=== PATIENT | female | born 1930 | race Caucasian/White ===

== ENCOUNTER → 2018-04-16 | Outpatient (REF) | payer MEDICARE, MEDICAID ==
[2018-04-16 19:29] LABS: FERRITIN 40 NG/ML (8-252); IRON (FE) 44 UG/DL (50-170); TOTAL IRON BINDING CAPACITY 304 UG/DL (250-450)
[2018-04-16 21:02] LABS: PERCENT SATURATION 14.5 % (13.2-45.0)
== END ==
LOC: M LAB REF 17:00
DX: N18.4 Chronic kidney disease, stage 4 (severe) (principal); N39.0 Urinary tract infection, site not specified; D50.9 Iron deficiency anemia, unspecified
CPT/HCPCS: 83550

== ENCOUNTER 2018-04-30 15:50 | Inpatient (IN) | payer MEDICARE, MEDICAID ==
[2018-04-30 16:26] LABS: BASO % 0.7 % (0.0-1.0); EOS # 0.3 10^3/uL (0.0-0.50); EOS % 5.8 % (0.0-3.0); HEMOGLOBIN 10.9 g/dl (12.0-15.5); IMMATURE GRANULOCYTE % 0.3 % (0-3.0); LYMPH # 1.8 10^3/uL (1.5-4.5); LYMPH % 30.1 % (24.0-44.0); MEAN CORPUSCULAR HEMOGLOBIN 31.7 pg (27.0-33.0); MEAN CORPUSCULAR HGB CONC 32.1 g/dl (32.0-36.5); MEAN CORPUSCULAR VOLUME 98.8 fl (80.0-96.0); MONO # 0.5 10^3/uL (0.0-0.8); MONO % 8.4 % (0.0-5.0); NEUTROPHILS # 3.2 10^3/uL (1.8-7.7); NEUTROPHILS % 54.7 % (36.0-66.0); PLATELET COUNT, AUTOMATED 223 10^3/uL (150-450); RED BLOOD COUNT 3.44 10^6/uL (4.00-5.40); RED CELL DISTRIBUTION WIDTH 17.2 % (11.5-14.5); WHITE BLOOD COUNT 5.8 10^3/uL (4.0-10.0)
[2018-04-30] MEDS ORDERED: LABETALOL HCL 100 MG/20 ML VIAL IV (16:49)
[2018-04-30] MEDS: hydrALAZINE INJ 20 MG/ML VIAL IV ×2 (17:11→17:59)
[2018-04-30 18:01] LABS: ANION GAP 11 MEQ/L (8-16); BLOOD UREA NITROGEN 41 MG/DL (7-18); CALCIUM LEVEL 10.6 MG/DL (8.8-10.2); CARBON DIOXIDE LEVEL 22 MEQ/L (21-32); CHLORIDE LEVEL 105 MEQ/L (98-107); CPK CREATINE PHOSPHOKINASE 57 U/L (26-192); CREATININE FOR GFR 3.12 MG/DL (0.55-1.30); GLUCOSE, FASTING 96 MG/DL (70-100); MB/CK RELATIVE INDEX 5.26 (< OR =4); POTASSIUM SERUM 4.3 MEQ/L (3.5-5.1); SODIUM LEVEL 138 MEQ/L (136-145); TROPONIN I 0.04 NG/ML (< 0.10)
[2018-04-30 18:03] LABS: INR 0.98; PROTHROMBIN TIME 13.1 SECONDS (12.1-14.4)
[2018-04-30 18:04] LABS: PARTIAL THROMBOPLASTIN TIME 28.8 SECONDS (25.4-37.6)
[2018-04-30] MEDS: TROPICAMIDE 1% OPHTH SOLN 2ML OU (18:41)
[2018-04-30] MEDS: PHENYLEPHRINE 2.5% OPHTH SOL 2ML OU (18:41)
[2018-04-30] MEDS ORDERED: clonazePAM 0.5 MG TAB PO (20:00)
[2018-04-30] MEDS ORDERED: ONDANSETRON 4MG/2ML VIAL (J2405) IV (20:15)
[2018-04-30] MEDS ORDERED: PILL CRUSHER/CUTTER 1 EACH XX (20:15)
[2018-04-30 20:28] LABS: C REACTIVE PROTEIN QUANTITATIV < 0.30 MG/DL (0.00-0.30)
[2018-04-30] MEDS: LABETALOL HCL 100 MG/20 ML VIAL IV (20:50)
[2018-04-30] MEDS: FERROUS SULFATE 325MG TAB PO (20:51)
[2018-04-30] MEDS: ATORVASTATIN 20 MG TAB PO (20:51)
[2018-04-30] MEDS: **hydrALAZINE HCL** 25 MG TAB PO (20:51)
[2018-04-30] MEDS: ISOSORBIDE DIN. (ISORDIL) 30 MG TAB PO (20:51)
[2018-04-30] MEDS: SENOKOT S TAB PO (20:52)
[2018-04-30] MEDS: CARVedilol 12.5 MG TAB PO (20:52)
[2018-04-30] MEDS: OLANZapine 2.5MG TABLET PO (20:52)
[2018-04-30 20:55] LABS: KETONE, URINE AUTO RFX NEGATIVE (NEGATIVE); LEUKOCYTE ESTERASE UR AUTO RFX NEGATIVE (NEGATIVE); NITRITE, URINE AUTO RFX NEGATIVE (NEGATIVE); RBC, URINE AUTO RFX 0 /HPF (0-3); SPECIFIC GRAVITY UR AUTO RFX 1.009 (1.002-1.035); SQUAM EPITHELIAL CELL UR AURFX 0 /HPF (0-6); WBC, URINE AUTO RFX 1 /HPF (0-3)
[2018-04-30] MEDS: TIMOLOL MALEATE 0.5% OPHTH SOLN 5 ML OU (21:00)
[2018-04-30 21:12] LABS: ERYTHROCYTE SEDIMENTATION RATE 68 mm/hr (0-42)
[2018-04-30 21:18] LABS: CHLORIDE,RANDOM URINE 108 MEQ/L; CREATININE,RANDOM URINE 33.7 MG/DL; POTASSIUM RANDOM URINE 40.3 MEQ/L; SODIUM,RANDOM URINE 90 MEQ/L; TOTAL PROTEIN,RANDOM URINE 114.2 MG/DL (0.0-12.0)
[2018-04-30 21:41] LABS: OSMOLALITY URINE 356 MOSM/KG (500-800)
[2018-04-30 22:33] LABS: CPK CREATINE PHOSPHOKINASE 60 U/L (26-192); FREE THYROXINE INDEX 4.6 % (1.3-4.8); MB/CK RELATIVE INDEX 4.83 (< OR =4); T UPTAKE 40 % (30-39); THYROXINE (T4) 11.4 UG/DL (4.5-12.0); TROPONIN I 0.06 NG/ML (< 0.10)
[2018-05-01] MEDS: BRIMONIDINE 0.1% OPHTH SOLN 5 ML OU ×3 (01:59→22:02)
[2018-05-01] MEDS: LATANOPROST 0.005% OPHTH SOLN 2.5 ML OU ×2 (01:59→22:01)
[2018-05-01] MEDS: oxyBUTYnin 5 MG TAB PO ×3 (02:00→20:08)
[2018-05-01] MEDS: HEPARIN SOD (PORCINE) 5000 UNITS/ML VIAL SC ×3 (02:01→20:08)
[2018-05-01] MEDS: **hydrALAZINE HCL** 25 MG TAB PO ×3 (06:00→22:01)
[2018-05-01] MEDS: ISOSORBIDE DIN. (ISORDIL) 30 MG TAB PO ×3 (06:00→22:02)
[2018-05-01] MEDS: LEVOTHYROXINE 100MCG TABLET (0.1MG) PO (06:02)
[2018-05-01 06:32] LABS: HEMATOCRIT 30.3 % (36.0-47.0); HEMOGLOBIN 9.8 g/dl (12.0-15.5); MEAN CORPUSCULAR HEMOGLOBIN 32.1 pg (27.0-33.0); MEAN CORPUSCULAR HGB CONC 32.3 g/dl (32.0-36.5); MEAN CORPUSCULAR VOLUME 99.3 fl (80.0-96.0); PLATELET COUNT, AUTOMATED 194 10^3/uL (150-450); RED BLOOD COUNT 3.05 10^6/uL (4.00-5.40); RED CELL DISTRIBUTION WIDTH 17.6 % (11.5-14.5); WHITE BLOOD COUNT 5.4 10^3/uL (4.0-10.0)
[2018-05-01 06:53] LABS: ALBUMIN 3.1 GM/DL (3.2-5.2); ANION GAP 9 MEQ/L (8-16); BLOOD UREA NITROGEN 48 MG/DL (7-18); CALCIUM LEVEL 10.2 MG/DL (8.8-10.2); CARBON DIOXIDE LEVEL 23 MEQ/L (21-32); CHLORIDE LEVEL 104 MEQ/L (98-107); CHOLESTEROL LEVEL 282 MG/DL (<200); CHOLESTEROL RISK RATIO 9.096 (<5); CPK CREATINE PHOSPHOKINASE 79 U/L (26-192); CREATININE FOR GFR 3.49 MG/DL (0.55-1.30); GLOMERULAR FILTRATION RATE 13.2 (>32); GLUCOSE, FASTING 120 MG/DL (70-100); HDL CHOLESTEROL 31 MG/DL (>40); LDL CHOLESTEROL 205 MG/DL (<100); MAGNESIUM LEVEL 2.1 MG/DL (1.8-2.4); NON-HDL-C 251 MG/DL; PHOSPHORUS LEVEL 3.6 MG/DL (2.5-4.9); POTASSIUM SERUM 4.6 MEQ/L (3.5-5.1); SODIUM LEVEL 136 MEQ/L (136-145); TRIGLYCERIDES LEVEL 228 MG/DL (<150); TROPONIN I 0.08 NG/ML (< 0.10)
[2018-05-01] MEDS: ASPIRIN 81 MG ENTERIC TAB PO (08:22)
[2018-05-01] MEDS: PANTOPRAZOLE 40MG TAB (PROTONIX) PO (08:23)
[2018-05-01] MEDS: FERROUS SULFATE 325MG TAB PO ×2 (08:23→20:07)
[2018-05-01] MEDS: SENOKOT S TAB PO ×2 (08:23→20:07)
[2018-05-01] MEDS: CARVedilol 12.5 MG TAB PO ×2 (08:23→20:08)
[2018-05-01] MEDS: CLOPIDOGREL 75 MG TAB PO (08:23)
[2018-05-01] MEDS: TIMOLOL MALEATE 0.5% OPHTH SOLN 5 ML OU ×2 (09:00→20:14)
[2018-05-01 10:31] LABS: ESTIMATED AVERAGE GLUCOSE 114 MG/DL (60-110); HEMOGLOBIN A1c 5.6 %
[2018-05-01 11:41] LABS: HEPATITIS B CORE ANTIBODY IGM NEGATIVE (NEGATIVE); HEPATITIS B SURFACE ANTIBODY NEGATIVE (POSITIVE); HEPATITIS B SURFACE ANTIGEN NEGATIVE (NEGATIVE); HEPATITIS C VIRUS ABY INDEX 0.2 INDEX (<0.8)
[2018-05-01] MEDS: ATORVASTATIN 20 MG TAB PO (20:07)
[2018-05-01] MEDS: OLANZapine 2.5MG TABLET PO (20:14)
[2018-05-02] MEDS: **hydrALAZINE HCL** 25 MG TAB PO ×3 (05:58→22:35)
[2018-05-02] MEDS: LEVOTHYROXINE 100MCG TABLET (0.1MG) PO (05:58)
[2018-05-02] MEDS: ISOSORBIDE DIN. (ISORDIL) 30 MG TAB PO ×3 (05:58→22:35)
[2018-05-02 06:10] LABS: HEMATOCRIT 28.4 % (36.0-47.0); HEMOGLOBIN 9.2 g/dl (12.0-15.5); MEAN CORPUSCULAR HEMOGLOBIN 32.6 pg (27.0-33.0); MEAN CORPUSCULAR HGB CONC 32.4 g/dl (32.0-36.5); MEAN CORPUSCULAR VOLUME 100.7 fl (80.0-96.0); PLATELET COUNT, AUTOMATED 187 10^3/uL (150-450); RED BLOOD COUNT 2.82 10^6/uL (4.00-5.40); RED CELL DISTRIBUTION WIDTH 17.2 % (11.5-14.5); WHITE BLOOD COUNT 5.5 10^3/uL (4.0-10.0)
[2018-05-02 06:39] LABS: ALBUMIN 2.9 GM/DL (3.2-5.2); ANION GAP 12 MEQ/L (8-16); BLOOD UREA NITROGEN 58 MG/DL (7-18); CALCIUM LEVEL 9.6 MG/DL (8.8-10.2); CARBON DIOXIDE LEVEL 20 MEQ/L (21-32); CHLORIDE LEVEL 102 MEQ/L (98-107); CREATININE FOR GFR 4.24 MG/DL (0.55-1.30); GLOMERULAR FILTRATION RATE 10.5 (>32); GLUCOSE, FASTING 100 MG/DL (70-100); MAGNESIUM LEVEL 2.3 MG/DL (1.8-2.4); PHOSPHORUS LEVEL 4.6 MG/DL (2.5-4.9); POTASSIUM SERUM 4.4 MEQ/L (3.5-5.1); SODIUM LEVEL 134 MEQ/L (136-145)
[2018-05-02 08:23] LABS: HEPATITIS B CORE ANTIBODY IGG Negative (Negative)
[2018-05-02] MEDS: BRIMONIDINE 0.1% OPHTH SOLN 5 ML OU ×2 (08:52→20:37)
[2018-05-02] MEDS: TIMOLOL MALEATE 0.5% OPHTH SOLN 5 ML OU ×2 (08:52→20:38)
[2018-05-02] MEDS: SENOKOT S TAB PO ×2 (08:53→20:40)
[2018-05-02] MEDS: oxyBUTYnin 5 MG TAB PO ×2 (08:53→20:40)
[2018-05-02] MEDS: HEPARIN SOD (PORCINE) 5000 UNITS/ML VIAL SC ×2 (08:53→20:41)
[2018-05-02] MEDS: ASPIRIN 81 MG ENTERIC TAB PO (08:53)
[2018-05-02] MEDS: FERROUS SULFATE 325MG TAB PO ×2 (08:53→20:40)
[2018-05-02] MEDS: PANTOPRAZOLE 40MG TAB (PROTONIX) PO (08:53)
[2018-05-02] MEDS: CLOPIDOGREL 75 MG TAB PO (08:53)
[2018-05-02] MEDS: CARVedilol 12.5 MG TAB PO ×2 (08:53→20:40)
[2018-05-02 12:10] LABS: FERRITIN 43 NG/ML (8-252); IRON (FE) 31 UG/DL (50-170); PERCENT SATURATION 11.6 % (13.2-45.0); TOTAL IRON BINDING CAPACITY 268 UG/DL (250-450)
[2018-05-02] MEDS: LATANOPROST 0.005% OPHTH SOLN 2.5 ML OU (20:37)
[2018-05-02] MEDS: ATORVASTATIN 20 MG TAB PO (20:40)
[2018-05-02] MEDS: OLANZapine 2.5MG TABLET PO (20:40)
[2018-05-03] MEDS: **hydrALAZINE HCL** 25 MG TAB PO ×3 (05:23→22:00)
[2018-05-03] MEDS: ISOSORBIDE DIN. (ISORDIL) 30 MG TAB PO ×3 (05:23→22:00)
[2018-05-03] MEDS: LEVOTHYROXINE 100MCG TABLET (0.1MG) PO (05:23)
[2018-05-03 05:54] LABS: HEMATOCRIT 26.6 % (36.0-47.0); HEMOGLOBIN 8.6 g/dl (12.0-15.5); MEAN CORPUSCULAR HEMOGLOBIN 31.9 pg (27.0-33.0); MEAN CORPUSCULAR HGB CONC 32.3 g/dl (32.0-36.5); MEAN CORPUSCULAR VOLUME 98.5 fl (80.0-96.0); PLATELET COUNT, AUTOMATED 167 10^3/uL (150-450); RED CELL DISTRIBUTION WIDTH 16.8 % (11.5-14.5); WHITE BLOOD COUNT 6.1 10^3/uL (4.0-10.0)
[2018-05-03 06:23] LABS: ANION GAP 11 MEQ/L (8-16); BLOOD UREA NITROGEN 66 MG/DL (7-18); CALCIUM LEVEL 8.9 MG/DL (8.8-10.2); CARBON DIOXIDE LEVEL 20 MEQ/L (21-32); CHLORIDE LEVEL 101 MEQ/L (98-107); CREATININE FOR GFR 4.06 MG/DL (0.55-1.30); GLOMERULAR FILTRATION RATE 11.1 (>32); GLUCOSE, FASTING 100 MG/DL (70-100); PHOSPHORUS LEVEL 4.4 MG/DL (2.5-4.9); POTASSIUM SERUM 4.1 MEQ/L (3.5-5.1); SODIUM LEVEL 132 MEQ/L (136-145)
[2018-05-03] MEDS: BRIMONIDINE 0.1% OPHTH SOLN 5 ML OU ×2 (08:00→21:00)
[2018-05-03] MEDS: TIMOLOL MALEATE 0.5% OPHTH SOLN 5 ML OU ×2 (08:00→21:00)
[2018-05-03] MEDS: CLINDAMYCIN 600 MG/50 ML PREMIX BAG As Ordered (08:40)
[2018-05-03] MEDS ORDERED: LIDOCAINE 2% INJ 100 MG/5 ML SDV (FOR ANES.) As Ordered (08:54)
[2018-05-03] MEDS ORDERED: fentaNYL 100 MCG/2 ML INJECTION (J3010) As Ordered (08:54)
[2018-05-03] MEDS ORDERED: PROPOFOL 200 MG/20 ML VIAL As Ordered (08:54)
[2018-05-03] MEDS: CLINDAMYCIN 600 MG in APPROPRIATE DILUENT 1 EA IV (09:00)
[2018-05-03] MEDS: HEPARIN SOD (PORCINE) 5000 UNITS/ML VIAL SC ×2 (09:00→21:00)
[2018-05-03] MEDS: LIDOCAINE 1% SDV INJ 30 ML VIAL As Ordered (09:09)
[2018-05-03] MEDS: HEPARIN SOD (PORCINE) 5000 UNITS/ML VIAL As Ordered (09:09)
[2018-05-03] MEDS: BUPIVACAINE HCL 0.25% 30 ML VIAL As Ordered (09:09)
[2018-05-03] MEDS ORDERED: HEPARIN SOD (PORCINE) 5000 UNITS/ML VIAL As Ordered (09:15)
[2018-05-03] MEDS ORDERED: ONDANSETRON 4MG/2ML VIAL (J2405) IV (10:45)
[2018-05-03] MEDS: LR 1,000 ML IV (10:45)
[2018-05-03] MEDS ORDERED: fentaNYL 100 MCG/2 ML INJECTION (J3010) IV (10:45)
[2018-05-03] MEDS ORDERED: HYDROMORPHONE HCL 0.5 MG/ 0.5 ML SYRINGE (J1170 PER 1) IV (10:45)
[2018-05-03] MEDS: FERROUS SULFATE 325MG TAB PO ×2 (12:46→21:00)
[2018-05-03] MEDS: SENOKOT S TAB PO ×2 (12:47→21:00)
[2018-05-03] MEDS: oxyBUTYnin 5 MG TAB PO ×2 (12:47→21:00)
[2018-05-03] MEDS: CARVedilol 12.5 MG TAB PO ×2 (12:48→21:00)
[2018-05-03] MEDS: PANTOPRAZOLE 40MG TAB (PROTONIX) PO (12:48)
[2018-05-03 13:37] LABS: HIVSOURCE0 NEGATIVE (NEGATIVE)
[2018-05-03 13:46] LABS: CONTROL LINE INT CTR LINE PRESENT; HIV SOURCE PT 1 NEGATIVE (NEGATIVE)
[2018-05-03] MEDS: [UNRECOGNIZED DRUG - OTHER] IM (18:50)
[2018-05-03] MEDS: LATANOPROST 0.005% OPHTH SOLN 2.5 ML OU (21:00)
[2018-05-03] MEDS: OLANZapine 2.5MG TABLET PO (21:00)
[2018-05-03] MEDS: ATORVASTATIN 20 MG TAB PO (21:00)
[2018-05-03 22:08] LABS: HEMATOCRIT 28.5 % (36.0-47.0); HEMOGLOBIN 9.2 g/dl (12.0-15.5); MEAN CORPUSCULAR HEMOGLOBIN 32.3 pg (27.0-33.0); MEAN CORPUSCULAR HGB CONC 32.3 g/dl (32.0-36.5); PLATELET COUNT, AUTOMATED 151 10^3/uL (150-450); RED BLOOD COUNT 2.85 10^6/uL (4.00-5.40); RED CELL DISTRIBUTION WIDTH 17.1 % (11.5-14.5); WHITE BLOOD COUNT 5.3 10^3/uL (4.0-10.0)
[2018-05-04] MEDS: ISOSORBIDE DIN. (ISORDIL) 30 MG TAB PO ×3 (06:23→21:47)
[2018-05-04] MEDS: FERROUS SULFATE 325MG TAB PO (06:23)
[2018-05-04] MEDS: PANTOPRAZOLE 40MG TAB (PROTONIX) PO (06:24)
[2018-05-04] MEDS: LEVOTHYROXINE 100MCG TABLET (0.1MG) PO (06:24)
[2018-05-04] MEDS: CARVedilol 12.5 MG TAB PO ×2 (06:24→20:42)
[2018-05-04] MEDS: **hydrALAZINE HCL** 25 MG TAB PO ×3 (06:25→21:48)
[2018-05-04] MEDS: SENOKOT S TAB PO ×2 (06:25→21:48)
[2018-05-04] MEDS: oxyBUTYnin 5 MG TAB PO ×2 (06:25→20:41)
[2018-05-04] MEDS: BRIMONIDINE 0.1% OPHTH SOLN 5 ML OU ×2 (06:26→21:49)
[2018-05-04] MEDS: TIMOLOL MALEATE 0.5% OPHTH SOLN 5 ML OU ×2 (06:26→21:49)
[2018-05-04] MEDS ORDERED: IRON SUCROSE 100MG 5ML VIAL (J1756 PER 1MG) IV (08:00)
[2018-05-04] MEDS: ASPIRIN 81 MG ENTERIC TAB PO (09:51)
[2018-05-04 09:52] LABS: PTH INTACT 13.2 PG/ML (18.5-88.0)
[2018-05-04] MEDS: CLOPIDOGREL 75 MG TAB PO (09:53)
[2018-05-04] MEDS: HEPARIN SOD (PORCINE) 5000 UNITS/ML VIAL SC ×2 (09:54→20:42)
[2018-05-04 12:06] LABS: HEPATITIS B SURFACE ANTIGEN NEGATIVE (NEGATIVE)
[2018-05-04 12:06] LABS: HEP C VIRUS AB INDEX SOURCE PT 0.2 INDEX (0.0-0.8)
[2018-05-04 14:45] LABS: HEMATOCRIT 28.3 % (36.0-47.0); HEMOGLOBIN 9.2 g/dl (12.0-15.5); MEAN CORPUSCULAR HEMOGLOBIN 33.1 pg (27.0-33.0); MEAN CORPUSCULAR HGB CONC 32.5 g/dl (32.0-36.5); MEAN CORPUSCULAR VOLUME 101.8 fl (80.0-96.0); PLATELET COUNT, AUTOMATED 170 10^3/uL (150-450); RED BLOOD COUNT 2.78 10^6/uL (4.00-5.40); RED CELL DISTRIBUTION WIDTH 17.1 % (11.5-14.5); WHITE BLOOD COUNT 5.4 10^3/uL (4.0-10.0)
[2018-05-04 15:07] LABS: ANION GAP 9 MEQ/L (8-16); BLOOD UREA NITROGEN 62 MG/DL (7-18); CALCIUM LEVEL 8.1 MG/DL (8.8-10.2); CARBON DIOXIDE LEVEL 21 MEQ/L (21-32); CHLORIDE LEVEL 107 MEQ/L (98-107); CREATININE FOR GFR 3.57 MG/DL (0.55-1.30); GLOMERULAR FILTRATION RATE 12.9 (>32); GLUCOSE, FASTING 93 MG/DL (70-100); HEMATOCRIT 26.6 % (36.0-47.0); HEMOGLOBIN 8.5 g/dl (12.0-15.5); MAGNESIUM LEVEL 1.8 MG/DL (1.8-2.4); PLATELET COUNT, AUTOMATED 151 10^3/uL (150-450); POTASSIUM SERUM 4.1 MEQ/L (3.5-5.1); RED BLOOD COUNT 2.66 10^6/uL (4.00-5.40); RED CELL DISTRIBUTION WIDTH 17.2 % (11.5-14.5); SODIUM LEVEL 137 MEQ/L (136-145); WHITE BLOOD COUNT 5.2 10^3/uL (4.0-10.0)
[2018-05-04 15:32] LABS: ANION GAP 12 MEQ/L (8-16); BLOOD UREA NITROGEN 63 MG/DL (7-18); CALCIUM LEVEL 8.6 MG/DL (8.8-10.2); CARBON DIOXIDE LEVEL 20 MEQ/L (21-32); CHLORIDE LEVEL 105 MEQ/L (98-107); CREATININE FOR GFR 3.74 MG/DL (0.55-1.30); GLOMERULAR FILTRATION RATE 12.2 (>32); GLUCOSE, FASTING 111 MG/DL (70-100); MAGNESIUM LEVEL 2.1 MG/DL (1.8-2.4); PHOSPHORUS LEVEL 4.3 MG/DL (2.5-4.9); POTASSIUM SERUM 4.6 MEQ/L (3.5-5.1); SODIUM LEVEL 137 MEQ/L (136-145)
[2018-05-04] MEDS ORDERED: HEPARIN 1,000 UNITS/ML 10ML VIAL (FOR RADIOLOGY& DIALYSIS ONLY) As Ordered (16:05)
[2018-05-04] MEDS ORDERED: LIDOCAINE 1% MDV 20ML VIAL As Ordered (16:05)
[2018-05-04] MEDS ORDERED: LIDOCAINE 2% MDV 20 ML VIAL As Ordered (16:10)
[2018-05-04] MEDS: ATORVASTATIN 20 MG TAB PO (20:41)
[2018-05-04] MEDS: OLANZapine 2.5MG TABLET PO (21:47)
[2018-05-04] MEDS: LATANOPROST 0.005% OPHTH SOLN 2.5 ML OU (21:48)
[2018-05-05] MEDS: ASPIRIN 81 MG ENTERIC TAB PO (05:59)
[2018-05-05] MEDS: LEVOTHYROXINE 100MCG TABLET (0.1MG) PO (05:59)
[2018-05-05] MEDS: ISOSORBIDE DIN. (ISORDIL) 30 MG TAB PO ×3 (05:59→21:23)
[2018-05-05] MEDS: SENOKOT S TAB PO ×2 (06:00→20:22)
[2018-05-05] MEDS: PANTOPRAZOLE 40MG TAB (PROTONIX) PO (06:00)
[2018-05-05] MEDS: oxyBUTYnin 5 MG TAB PO ×2 (06:00→20:22)
[2018-05-05] MEDS: CLOPIDOGREL 75 MG TAB PO (06:00)
[2018-05-05] MEDS: CARVedilol 12.5 MG TAB PO ×2 (06:01→20:23)
[2018-05-05] MEDS: **hydrALAZINE HCL** 25 MG TAB PO ×3 (06:01→21:23)
[2018-05-05] MEDS: TIMOLOL MALEATE 0.5% OPHTH SOLN 5 ML OU ×2 (06:02→20:25)
[2018-05-05] MEDS: BRIMONIDINE 0.1% OPHTH SOLN 5 ML OU ×2 (06:02→20:25)
[2018-05-05 06:06] LABS: HEMATOCRIT 26.5 % (36.0-47.0); HEMOGLOBIN 8.6 g/dl (12.0-15.5); MEAN CORPUSCULAR HEMOGLOBIN 31.9 pg (27.0-33.0); MEAN CORPUSCULAR HGB CONC 32.5 g/dl (32.0-36.5); MEAN CORPUSCULAR VOLUME 98.1 fl (80.0-96.0); PLATELET COUNT, AUTOMATED 151 10^3/uL (150-450); RED CELL DISTRIBUTION WIDTH 17.1 % (11.5-14.5); WHITE BLOOD COUNT 5.3 10^3/uL (4.0-10.0)
[2018-05-05 06:25] LABS: ALBUMIN 2.8 GM/DL (3.2-5.2); ANION GAP 8 MEQ/L (8-16); BLOOD UREA NITROGEN 32 MG/DL (7-18); CALCIUM LEVEL 8.3 MG/DL (8.8-10.2); CARBON DIOXIDE LEVEL 26 MEQ/L (21-32); CHLORIDE LEVEL 106 MEQ/L (98-107); CREATININE FOR GFR 2.48 MG/DL (0.55-1.30); GLOMERULAR FILTRATION RATE 19.6 (>32); GLUCOSE, FASTING 100 MG/DL (70-100); PHOSPHORUS LEVEL 2.7 MG/DL (2.5-4.9); POTASSIUM SERUM 4.1 MEQ/L (3.5-5.1); SODIUM LEVEL 140 MEQ/L (136-145)
[2018-05-05] MEDS: HEPARIN SOD (PORCINE) 5000 UNITS/ML VIAL SC ×2 (10:09→20:24)
[2018-05-05] MEDS: MIRALAX *UNIT DOSE* 17GM PACKET PO (10:12)
[2018-05-05] MEDS: LATANOPROST 0.005% OPHTH SOLN 2.5 ML OU (20:25)
[2018-05-05] MEDS: ATORVASTATIN 20 MG TAB PO (21:23)
[2018-05-05] MEDS: OLANZapine 2.5MG TABLET PO (21:38)
[2018-05-06] MEDS: SENOKOT S TAB PO ×2 (05:49→21:13)
[2018-05-06] MEDS: CARVedilol 12.5 MG TAB PO ×2 (05:50→21:13)
[2018-05-06] MEDS: CLOPIDOGREL 75 MG TAB PO (05:50)
[2018-05-06] MEDS: ISOSORBIDE DIN. (ISORDIL) 30 MG TAB PO ×3 (05:50→21:14)
[2018-05-06] MEDS: LEVOTHYROXINE 100MCG TABLET (0.1MG) PO (05:51)
[2018-05-06] MEDS: **hydrALAZINE HCL** 25 MG TAB PO ×3 (05:51→21:14)
[2018-05-06] MEDS: oxyBUTYnin 5 MG TAB PO ×2 (05:51→21:13)
[2018-05-06] MEDS: PANTOPRAZOLE 40MG TAB (PROTONIX) PO (05:51)
[2018-05-06] MEDS: ASPIRIN 81 MG ENTERIC TAB PO (05:51)
[2018-05-06] MEDS: HEPARIN SOD (PORCINE) 5000 UNITS/ML VIAL SC ×2 (05:52→21:14)
[2018-05-06] MEDS: TIMOLOL MALEATE 0.5% OPHTH SOLN 5 ML OU ×2 (05:53→21:13)
[2018-05-06] MEDS: BRIMONIDINE 0.1% OPHTH SOLN 5 ML OU ×2 (05:53→21:21)
[2018-05-06 06:07] LABS: HEMATOCRIT 23.2 % (36.0-47.0); HEMOGLOBIN 7.9 g/dl (12.0-15.5); MEAN CORPUSCULAR HEMOGLOBIN 34.3 pg (27.0-33.0); MEAN CORPUSCULAR HGB CONC 34.1 g/dl (32.0-36.5); MEAN CORPUSCULAR VOLUME 100.9 fl (80.0-96.0); PLATELET COUNT, AUTOMATED 137 10^3/uL (150-450); RED CELL DISTRIBUTION WIDTH 16.7 % (11.5-14.5); WHITE BLOOD COUNT 6.1 10^3/uL (4.0-10.0)
[2018-05-06 06:25] LABS: ALBUMIN 2.7 GM/DL (3.2-5.2); ANION GAP 8 MEQ/L (8-16); BLOOD UREA NITROGEN 40 MG/DL (7-18); CALCIUM LEVEL 7.9 MG/DL (8.8-10.2); CARBON DIOXIDE LEVEL 23 MEQ/L (21-32); CHLORIDE LEVEL 104 MEQ/L (98-107); GLUCOSE, FASTING 97 MG/DL (70-100); MAGNESIUM LEVEL 1.9 MG/DL (1.8-2.4); PHOSPHORUS LEVEL 2.7 MG/DL (2.5-4.9); POTASSIUM SERUM 4.3 MEQ/L (3.5-5.1); SODIUM LEVEL 135 MEQ/L (136-145)
[2018-05-06] MEDS ORDERED: DARBEPOETIN 100 MCG/0.5 ML *DIALYSIS* SYRINGE (J0882) IV (08:00)
[2018-05-06 13:52] LABS: IMMEDIATE SPIN CROSSMATCH 1 1
[2018-05-06] MEDS: HEPARIN 1,000 UNITS/ML 10ML VIAL (FOR RADIOLOGY& DIALYSIS ONLY) XX (20:52)
[2018-05-06] MEDS: OLANZapine 2.5MG TABLET PO (21:13)
[2018-05-06] MEDS: ATORVASTATIN 20 MG TAB PO (21:13)
[2018-05-06] MEDS: LATANOPROST 0.005% OPHTH SOLN 2.5 ML OU (21:17)
[2018-05-07 06:03] LABS: HEMATOCRIT 29.5 % (36.0-47.0); HEMOGLOBIN 9.6 g/dl (12.0-15.5); MEAN CORPUSCULAR HEMOGLOBIN 31.9 pg (27.0-33.0); MEAN CORPUSCULAR HGB CONC 32.5 g/dl (32.0-36.5); PLATELET COUNT, AUTOMATED 154 10^3/uL (150-450); RED BLOOD COUNT 3.01 10^6/uL (4.00-5.40); RED CELL DISTRIBUTION WIDTH 16.3 % (11.5-14.5); WHITE BLOOD COUNT 6.3 10^3/uL (4.0-10.0)
[2018-05-07 06:25] LABS: ALBUMIN 2.6 GM/DL (3.2-5.2); ANION GAP 10 MEQ/L (8-16); BLOOD UREA NITROGEN 28 MG/DL (7-18); CARBON DIOXIDE LEVEL 24 MEQ/L (21-32); CHLORIDE LEVEL 104 MEQ/L (98-107); CREATININE FOR GFR 2.52 MG/DL (0.55-1.30); GLOMERULAR FILTRATION RATE 19.2 (>32); GLUCOSE, FASTING 103 MG/DL (70-100); MAGNESIUM LEVEL 1.9 MG/DL (1.8-2.4); PHOSPHORUS LEVEL 2.4 MG/DL (2.5-4.9); POTASSIUM SERUM 4.4 MEQ/L (3.5-5.1); SODIUM LEVEL 138 MEQ/L (136-145)
[2018-05-07] MEDS: ISOSORBIDE DIN. (ISORDIL) 30 MG TAB PO ×3 (06:40→21:29)
[2018-05-07] MEDS: **hydrALAZINE HCL** 25 MG TAB PO ×3 (06:40→21:29)
[2018-05-07] MEDS: LEVOTHYROXINE 100MCG TABLET (0.1MG) PO (06:40)
[2018-05-07] MEDS: oxyBUTYnin 5 MG TAB PO ×2 (11:17→21:28)
[2018-05-07] MEDS: BRIMONIDINE 0.1% OPHTH SOLN 5 ML OU ×2 (11:17→21:30)
[2018-05-07] MEDS: TIMOLOL MALEATE 0.5% OPHTH SOLN 5 ML OU ×2 (11:17→21:30)
[2018-05-07] MEDS: CARVedilol 12.5 MG TAB PO ×2 (11:18→21:28)
[2018-05-07] MEDS: SENOKOT S TAB PO ×2 (11:18→21:29)
[2018-05-07] MEDS: PANTOPRAZOLE 40MG TAB (PROTONIX) PO (11:18)
[2018-05-07] MEDS: OLANZapine 2.5MG TABLET PO (21:28)
[2018-05-07] MEDS: LATANOPROST 0.005% OPHTH SOLN 2.5 ML OU (21:29)
[2018-05-07] MEDS: ATORVASTATIN 20 MG TAB PO (21:32)
[2018-05-08] MEDS: LEVOTHYROXINE 100MCG TABLET (0.1MG) PO (06:00)
[2018-05-08] MEDS: SENOKOT S TAB PO ×2 (06:10→21:10)
[2018-05-08] MEDS: PANTOPRAZOLE 40MG TAB (PROTONIX) PO (06:10)
[2018-05-08] MEDS: ISOSORBIDE DIN. (ISORDIL) 30 MG TAB PO ×3 (06:10→21:11)
[2018-05-08] MEDS: **hydrALAZINE HCL** 25 MG TAB PO ×3 (06:10→21:12)
[2018-05-08] MEDS: CARVedilol 12.5 MG TAB PO ×2 (06:11→21:11)
[2018-05-08] MEDS: oxyBUTYnin 5 MG TAB PO ×2 (06:11→21:11)
[2018-05-08] MEDS: BRIMONIDINE 0.1% OPHTH SOLN 5 ML OU ×2 (06:12→21:12)
[2018-05-08] MEDS: LATANOPROST 0.005% OPHTH SOLN 2.5 ML OU (06:12)
[2018-05-08] MEDS: TIMOLOL MALEATE 0.5% OPHTH SOLN 5 ML OU ×2 (07:28→21:12)
[2018-05-08 09:03] LABS: HEMATOCRIT 32.4 % (36.0-47.0); HEMOGLOBIN 10.6 g/dl (12.0-15.5); MEAN CORPUSCULAR HEMOGLOBIN 32.9 pg (27.0-33.0); MEAN CORPUSCULAR HGB CONC 32.7 g/dl (32.0-36.5); MEAN CORPUSCULAR VOLUME 100.6 fl (80.0-96.0); PLATELET COUNT, AUTOMATED 179 10^3/uL (150-450); RED BLOOD COUNT 3.22 10^6/uL (4.00-5.40); RED CELL DISTRIBUTION WIDTH 16.5 % (11.5-14.5); WHITE BLOOD COUNT 7.2 10^3/uL (4.0-10.0)
[2018-05-08 09:24] LABS: BASO % 0.4 % (0.0-1.0); EOS # 0.3 10^3/uL (0.0-0.50); EOS % 4.4 % (0.0-3.0); IMMATURE GRANULOCYTE % 0.4 % (0-3.0); MONO # 0.5 10^3/uL (0.0-0.8); MONO % 7.7 % (0.0-5.0); NEUTROPHILS # 4.9 10^3/uL (1.8-7.7); NEUTROPHILS % 72.1 % (36.0-66.0)
[2018-05-08 09:26] LABS: DIFF SLIDE NUMBER 94
[2018-05-08 09:34] LABS: ALBUMIN 3.1 GM/DL (3.2-5.2); ANION GAP 11 MEQ/L (8-16); BLOOD UREA NITROGEN 41 MG/DL (7-18); CALCIUM LEVEL 8.7 MG/DL (8.8-10.2); CARBON DIOXIDE LEVEL 22 MEQ/L (21-32); CHLORIDE LEVEL 105 MEQ/L (98-107); CREATININE FOR GFR 2.97 MG/DL (0.55-1.30); GLOMERULAR FILTRATION RATE 15.9 (>32); GLUCOSE, FASTING 169 MG/DL (70-100); PHOSPHORUS LEVEL 2.6 MG/DL (2.5-4.9); POTASSIUM SERUM 3.9 MEQ/L (3.5-5.1); SODIUM LEVEL 138 MEQ/L (136-145)
[2018-05-08] MEDS: ASPIRIN 81 MG ENTERIC TAB PO (14:38)
[2018-05-08] MEDS: ATORVASTATIN 20 MG TAB PO (21:10)
[2018-05-08] MEDS: OLANZapine 2.5MG TABLET PO (21:12)
[2018-05-09] MEDS: LEVOTHYROXINE 100MCG TABLET (0.1MG) PO (06:00)
[2018-05-09] MEDS: ISOSORBIDE DIN. (ISORDIL) 30 MG TAB PO ×3 (06:00→21:32)
[2018-05-09 06:48] LABS: HEMATOCRIT 31.8 % (36.0-47.0); HEMOGLOBIN 10.2 g/dl (12.0-15.5); MEAN CORPUSCULAR HEMOGLOBIN 31.6 pg (27.0-33.0); MEAN CORPUSCULAR HGB CONC 32.1 g/dl (32.0-36.5); MEAN CORPUSCULAR VOLUME 98.5 fl (80.0-96.0); PLATELET COUNT, AUTOMATED 174 10^3/uL (150-450); RED BLOOD COUNT 3.23 10^6/uL (4.00-5.40); RED CELL DISTRIBUTION WIDTH 16.3 % (11.5-14.5); WHITE BLOOD COUNT 7.9 10^3/uL (4.0-10.0)
[2018-05-09 07:17] LABS: ANION GAP 6 MEQ/L (8-16); BLOOD UREA NITROGEN 28 MG/DL (7-18); CALCIUM LEVEL 8.9 MG/DL (8.8-10.2); CARBON DIOXIDE LEVEL 28 MEQ/L (21-32); CHLORIDE LEVEL 102 MEQ/L (98-107); CREATININE FOR GFR 2.33 MG/DL (0.55-1.30); GLUCOSE, FASTING 103 MG/DL (70-100); POTASSIUM SERUM 4.2 MEQ/L (3.5-5.1); SODIUM LEVEL 136 MEQ/L (136-145)
[2018-05-09] MEDS: **hydrALAZINE HCL** 25 MG TAB PO ×3 (09:01→21:32)
[2018-05-09] MEDS: CARVedilol 12.5 MG TAB PO ×2 (09:02→21:32)
[2018-05-09] MEDS: SENOKOT S TAB PO ×2 (09:16→21:33)
[2018-05-09] MEDS: ASPIRIN 81 MG ENTERIC TAB PO (09:16)
[2018-05-09] MEDS: BRIMONIDINE 0.1% OPHTH SOLN 5 ML OU ×2 (09:17→21:34)
[2018-05-09] MEDS: oxyBUTYnin 5 MG TAB PO ×2 (09:17→21:33)
[2018-05-09] MEDS: PANTOPRAZOLE 40MG TAB (PROTONIX) PO (09:17)
[2018-05-09] MEDS: TIMOLOL MALEATE 0.5% OPHTH SOLN 5 ML OU ×2 (09:17→21:33)
[2018-05-09] MEDS: BISACODYL 10 MG SUPP PR (17:21)
[2018-05-09] MEDS: OLANZapine 2.5MG TABLET PO (21:32)
[2018-05-09] MEDS: ATORVASTATIN 20 MG TAB PO (21:33)
[2018-05-09] MEDS: LATANOPROST 0.005% OPHTH SOLN 2.5 ML OU (21:33)
[2018-05-10 05:59] LABS: HEMATOCRIT 32.1 % (36.0-47.0); HEMOGLOBIN 10.3 g/dl (12.0-15.5); MEAN CORPUSCULAR HEMOGLOBIN 32.3 pg (27.0-33.0); MEAN CORPUSCULAR HGB CONC 32.1 g/dl (32.0-36.5); MEAN CORPUSCULAR VOLUME 100.6 fl (80.0-96.0); PLATELET COUNT, AUTOMATED 181 10^3/uL (150-450); RED BLOOD COUNT 3.19 10^6/uL (4.00-5.40); RED CELL DISTRIBUTION WIDTH 16.2 % (11.5-14.5); WHITE BLOOD COUNT 8.2 10^3/uL (4.0-10.0)
[2018-05-10] MEDS: ISOSORBIDE DIN. (ISORDIL) 30 MG TAB PO ×3 (06:02→22:30)
[2018-05-10] MEDS: LEVOTHYROXINE 100MCG TABLET (0.1MG) PO (06:03)
[2018-05-10] MEDS: **hydrALAZINE HCL** 25 MG TAB PO ×3 (06:03→22:30)
[2018-05-10 06:24] LABS: ANION GAP 9 MEQ/L (8-16); BLOOD UREA NITROGEN 48 MG/DL (7-18); CALCIUM LEVEL 8.3 MG/DL (8.8-10.2); CARBON DIOXIDE LEVEL 25 MEQ/L (21-32); CHLORIDE LEVEL 103 MEQ/L (98-107); GLOMERULAR FILTRATION RATE 16.3 (>32); GLUCOSE, FASTING 108 MG/DL (70-100); POTASSIUM SERUM 3.9 MEQ/L (3.5-5.1); SODIUM LEVEL 137 MEQ/L (136-145)
[2018-05-10] MEDS: oxyBUTYnin 5 MG TAB PO ×2 (10:04→20:34)
[2018-05-10] MEDS: SENOKOT S TAB PO ×2 (10:05→20:34)
[2018-05-10] MEDS: PANTOPRAZOLE 40MG TAB (PROTONIX) PO (10:05)
[2018-05-10] MEDS: ASPIRIN 81 MG ENTERIC TAB PO (10:05)
[2018-05-10] MEDS: CARVedilol 12.5 MG TAB PO ×2 (10:05→20:34)
[2018-05-10] MEDS: TIMOLOL MALEATE 0.5% OPHTH SOLN 5 ML OU ×2 (10:06→20:35)
[2018-05-10] MEDS: BRIMONIDINE 0.1% OPHTH SOLN 5 ML OU ×2 (10:06→20:35)
[2018-05-10] MEDS: FLEET ENEMA PR (15:35)
[2018-05-10] MEDS: OLANZapine 2.5MG TABLET PO (20:33)
[2018-05-10] MEDS: ATORVASTATIN 20 MG TAB PO (20:34)
[2018-05-10] MEDS: LATANOPROST 0.005% OPHTH SOLN 2.5 ML OU (20:35)
[2018-05-11] MEDS: LEVOTHYROXINE 100MCG TABLET (0.1MG) PO (05:54)
[2018-05-11] MEDS: ISOSORBIDE DIN. (ISORDIL) 30 MG TAB PO ×3 (05:54→22:08)
[2018-05-11] MEDS: oxyBUTYnin 5 MG TAB PO ×2 (05:54→22:07)
[2018-05-11] MEDS: PANTOPRAZOLE 40MG TAB (PROTONIX) PO (05:54)
[2018-05-11] MEDS: SENOKOT S TAB PO ×2 (05:54→22:07)
[2018-05-11] MEDS: ASPIRIN 81 MG ENTERIC TAB PO (05:54)
[2018-05-11] MEDS: MIRALAX *UNIT DOSE* 17GM PACKET PO (05:55)
[2018-05-11] MEDS: **hydrALAZINE HCL** 25 MG TAB PO ×3 (05:55→22:08)
[2018-05-11] MEDS: BRIMONIDINE 0.1% OPHTH SOLN 5 ML OU ×2 (05:55→22:08)
[2018-05-11] MEDS: TIMOLOL MALEATE 0.5% OPHTH SOLN 5 ML OU ×2 (05:56→22:08)
[2018-05-11 06:26] LABS: HEMATOCRIT 29.6 % (36.0-47.0); HEMOGLOBIN 9.8 g/dl (12.0-15.5); MEAN CORPUSCULAR HEMOGLOBIN 32.9 pg (27.0-33.0); MEAN CORPUSCULAR HGB CONC 33.1 g/dl (32.0-36.5); MEAN CORPUSCULAR VOLUME 99.3 fl (80.0-96.0); PLATELET COUNT, AUTOMATED 179 10^3/uL (150-450); RED BLOOD COUNT 2.98 10^6/uL (4.00-5.40); RED CELL DISTRIBUTION WIDTH 16.4 % (11.5-14.5); WHITE BLOOD COUNT 7.9 10^3/uL (4.0-10.0)
[2018-05-11 06:53] LABS: ANION GAP 9 MEQ/L (8-16); BLOOD UREA NITROGEN 59 MG/DL (7-18); CARBON DIOXIDE LEVEL 24 MEQ/L (21-32); CHLORIDE LEVEL 100 MEQ/L (98-107); CREATININE FOR GFR 3.07 MG/DL (0.55-1.30); GLOMERULAR FILTRATION RATE 15.3 (>32); GLUCOSE, FASTING 103 MG/DL (70-100); POTASSIUM SERUM 4.2 MEQ/L (3.5-5.1); SODIUM LEVEL 133 MEQ/L (136-145)
[2018-05-11] MEDS: CARVedilol 12.5 MG TAB PO ×2 (09:30→22:06)
[2018-05-11] MEDS: CLOPIDOGREL 75 MG TAB PO (09:30)
[2018-05-11] MEDS: HEPARIN 1,000 UNITS/ML 10ML VIAL (FOR RADIOLOGY& DIALYSIS ONLY) XX (11:00)
[2018-05-11] MEDS: HEPARIN 1,000 UNITS/ML 10ML VIAL (FOR RADIOLOGY& DIALYSIS ONLY) IV (16:41)
[2018-05-11] MEDS: OLANZapine 2.5MG TABLET PO (22:07)
[2018-05-11] MEDS: ATORVASTATIN 20 MG TAB PO (22:07)
[2018-05-11] MEDS: LATANOPROST 0.005% OPHTH SOLN 2.5 ML OU (22:08)
[2018-05-12] MEDS: **hydrALAZINE HCL** 25 MG TAB PO (06:04)
[2018-05-12] MEDS: ISOSORBIDE DIN. (ISORDIL) 30 MG TAB PO (06:04)
[2018-05-12] MEDS: LEVOTHYROXINE 100MCG TABLET (0.1MG) PO (06:05)
[2018-05-12] MEDS: ACETAMINOPHEN TAB 650MG DOSE (2X325MG) PO (06:06)
[2018-05-12 06:18] LABS: HEMOGLOBIN 9.6 g/dl (12.0-15.5); MEAN CORPUSCULAR HEMOGLOBIN 32.8 pg (27.0-33.0); MEAN CORPUSCULAR HGB CONC 33.1 g/dl (32.0-36.5); PLATELET COUNT, AUTOMATED 175 10^3/uL (150-450); RED BLOOD COUNT 2.93 10^6/uL (4.00-5.40); RED CELL DISTRIBUTION WIDTH 16.6 % (11.5-14.5)
[2018-05-12 06:43] LABS: ANION GAP 7 MEQ/L (8-16); BLOOD UREA NITROGEN 37 MG/DL (7-18); CALCIUM LEVEL 8.4 MG/DL (8.8-10.2); CARBON DIOXIDE LEVEL 27 MEQ/L (21-32); CHLORIDE LEVEL 100 MEQ/L (98-107); CREATININE FOR GFR 2.25 MG/DL (0.55-1.30); GLOMERULAR FILTRATION RATE 21.9 (>32); GLUCOSE, FASTING 94 MG/DL (70-100); POTASSIUM SERUM 4.4 MEQ/L (3.5-5.1); SODIUM LEVEL 134 MEQ/L (136-145)
[2018-05-12] MEDS: CARVedilol 12.5 MG TAB PO (07:40)
[2018-05-12] MEDS: ASPIRIN 81 MG ENTERIC TAB PO (07:40)
[2018-05-12] MEDS: CLOPIDOGREL 75 MG TAB PO (07:40)
[2018-05-12] MEDS: BRIMONIDINE 0.1% OPHTH SOLN 5 ML OU (07:40)
[2018-05-12] MEDS: oxyBUTYnin 5 MG TAB PO (07:40)
[2018-05-12] MEDS: SENOKOT S TAB PO (07:40)
[2018-05-12] MEDS: MIRALAX *UNIT DOSE* 17GM PACKET PO (07:40)
[2018-05-12] MEDS: PANTOPRAZOLE 40MG TAB (PROTONIX) PO (07:40)
[2018-05-12] MEDS: TIMOLOL MALEATE 0.5% OPHTH SOLN 5 ML OU (08:06)
== END 2018-05-12 11:13 | disposition home health service (06) | DRG 304 ==
LOC: M PCU 05-01 00:55 → M MSPAV 05-03 02:46 → M ED 15:50 → M ED INP 20:09
PROC: 02HV33Z Insertion of Infusion Device into Superior Vena Cava, Percutaneous Approach (ICD-10-PCS; 2018-05-03 08:00)
PROC: 0JH63XZ Insertion of Tunneled Vascular Access Device into Chest Subcutaneous Tissue and Fascia, Percutaneous Approach (ICD-10-PCS; 2018-05-03 08:00)
PROC: B518ZZA Fluoroscopy of Superior Vena Cava, Guidance (ICD-10-PCS; 2018-05-03 08:00)
PROC: 30233N1 Transfusion of Nonautologous Red Blood Cells into Peripheral Vein, Percutaneous Approach (ICD-10-PCS; principal; 2018-05-03 08:30)
PROC: 0JPT0XZ Removal of Tunneled Vascular Access Device from Trunk Subcutaneous Tissue and Fascia, Open Approach (ICD-10-PCS; 2018-05-03 08:30)
PROC: 02PY33Z Removal of Infusion Device from Great Vessel, Percutaneous Approach (ICD-10-PCS; 2018-05-03 08:30)
PROC: 02HV33Z Insertion of Infusion Device into Superior Vena Cava, Percutaneous Approach (ICD-10-PCS; 2018-05-03 08:30)
PROC: 0JH63XZ Insertion of Tunneled Vascular Access Device into Chest Subcutaneous Tissue and Fascia, Percutaneous Approach (ICD-10-PCS; 2018-05-03 08:30)
DX: I15.0 Renovascular hypertension (principal); N18.6 End stage renal disease; N17.9 Acute kidney failure, unspecified; E87.2 Acidosis; E87.1 Hypo-osmolality and hyponatremia; E46 Unspecified protein-calorie malnutrition; T82.41XA Breakdown (mechanical) of vascular dialysis catheter, initial encounter; H40.9 Unspecified glaucoma; I16.0 Hypertensive urgency; D63.1 Anemia in chronic kidney disease; D50.9 Iron deficiency anemia, unspecified; E03.9 Hypothyroidism, unspecified; E78.5 Hyperlipidemia, unspecified; Z95.0 Presence of cardiac pacemaker; I10 Essential (primary) hypertension; Z79.899 Other long term (current) drug therapy; Z79.82 Long term (current) use of aspirin; Z88.0 Allergy status to penicillin; Z86.73 Personal history of transient ischemic attack (TIA), and cerebral infarction without residual deficits; Z95.2 Presence of prosthetic heart valve; F03.90 Unspecified dementia, unspecified severity, without behavioral disturbance, psychotic disturbance, mood disturbance, and anxiety; H35.033 Hypertensive retinopathy, bilateral; H47.011 Ischemic optic neuropathy, right eye; Y82.8 Other medical devices associated with adverse incidents

== ENCOUNTER 2018-08-20 08:48 | Outpatient (CLI) | payer MEDICARE, MEDICAID ==
[~2018-08-20 08:48] MED LIST: ACETAMINOPHEN TAB 650MG DOSE (2X325MG) PO SCH; ASPI1TAB PO; BRIM0.2S13 OU; CALC1TAB5 PO; CARV12.5 PO; CLON0.5T8 PO; DITR5TAB PO; FERR324T2 PO; FERR325T3 PO; HYDR-3910 PO; HYDR25TA PO; ISOS30TAB PO; LATA5OPD OU; LEVO100T5 PO; LEVO250T12 PO; LISI-538 PO; MIRA3350 PO; MULTCAP PO; OXYB5TAB10 PO; PANT40TA3 PO; PLAV1TAB2 PO; PROC20004 SC; TAB-TAB PO; TIMO0.5S29 OU; ZYPR2.5T2 PO; diphenhydrAMINE 25 MG CAP PO SCH
[2018-08-20] MEDS ORDERED: ACETAMINOPHEN 325 MG/10.15 ML UDC PO SCH (09:17)
[2018-08-20] MEDS ORDERED: diphenhydrAMINE 12.5MG/5ML ELIXIR UDC PO SCH (09:17)
== END 2018-08-20 14:30 | disposition home or self-care (01) ==
LOC: M INFU 08:48
PROVIDERS: ATTEND Internal Medicine Nephrology
DX: D64.9 Anemia, unspecified (principal); Z88.1 Allergy status to other antibiotic agents; Z88.2 Allergy status to sulfonamides
CPT/HCPCS: 36415; 36430; 86850; 86900; 86901; 86920; P9016

== ENCOUNTER → 2018-11-03 | Outpatient (CLI) | payer MEDICARE, MEDICAID ==
[~2018-11-03] MED LIST changes: -ACETAMINOPHEN TAB 650MG DOSE (2X325MG) PO SCH; -ASPI1TAB PO; +ASPI81TA26 PO; +LATA0.0013 OU; -LATA5OPD OU; -diphenhydrAMINE 25 MG CAP PO SCH
--- NOTE | 2018-11-03 13:21 | REP ---
Bilateral upper extremity arterial and venous Doppler assessment: History: End-stage renal disease. Vein mapping study. Findings: There is no evidence of venous thrombosis. The axillary and brachial arteries are duplicated on the right with one branch becoming the ulnar and the other than the radial artery. The ulnar arteries are bilaterally quite small in the mid and distal forearm. Normal wave forms. Right upper extremity venous diameter chart: Upper humerus basilic 3 mm, cephalic 2.6 mm Lower humerus basilic 3.6 mm, cephalic 3.5 mm Upper forearm basilic 2.4 mm, cephalic 2.2 mm Wrist basilic 1.1 mm, cephalic 2.5 mm Median cubital 4.4 mm Left upper extremity venous diameter chart: Upper humerus basilic 3.5 mm, cephalic 1.9 mm Lower humerus basilic 3.3 mm, cephalic 2.7 mm Upper forearm basilic 1.5 mm, cephalic 1.7 mm Wrist basilic 1.0 mm of, cephalic 1.9 mm Median cubital 2.3 mm Right upper extremity arterial Doppler velocity and diameter chart: Axillary and a 65 cm/S 4.6 mm Axillary be 68 cm/S, 2.8 mm Brachial a 96 cm/S, 2.9 mm Brachial be 72 cm/S, 2.4 mm Proximal radial 70 cm/S 2.6 mm Distal radial 62 cm/S, 2.5 mm Proximal ulnar 38 cm/S, 3.0 mm Distal ulnar 56 cm/S 1.1 mm Left upper extremity arterial Doppler velocity and diameter chart: Axillary 78 cm/S, 5.8 mm Brachial 64 cm/S, 3.3 mm Proximal radial 60 cm/S 2.4 mm Distal radial 40.2 cm/S, 2.1 mm Proximal ulnar 43 cm/S, 3.6 mm Distal ulnar 33 cm/S, 1.6 mm Electronically Signed by Scott Cortez MD 11/03/2018 01:12 P
== END ==
LOC: M RAD 10:40
PROVIDERS: ATTEND Surgery Vascular Surgery
DX: Z01.818 Encounter for other preprocedural examination (principal); N18.6 End stage renal disease

== ENCOUNTER 2018-12-08 11:23 | Day surgery (SDC) | payer MEDICARE, MEDICAID ==
[~2018-12-08] VITALS: Ht 149.9 cm; Wt 53.5 kg
[~2018-12-08 11:23] MED LIST changes: +BUPIVACAINE HCL 0.25% 30 ML VIAL As Ordered ONE; +BUPIVACAINE HCL 0.5% 30 ML VIAL As Ordered ONE; +HEPARIN SOD (PORCINE) 5000 UNITS/ML VIAL As Ordered ONE; +HYDR10TAB PO; +ISOVUE-300 61% 50ML VIAL (Q9967) As Ordered ONE; +LEVO112T2 PO; +LIDOCAINE 1% SDV INJ 30 ML VIAL As Ordered ONE; +MELA3TAB24 PO; +MIRC0.3I IM; +TRAZ-160 PO; +VANCOMYCIN HCL 1,000 MG, VIAL MATE ADAPTER 1 EACH in D5W 250 ML IV ONE
[2018-12-08] MEDS ORDERED: LIDOCAINE 1% MDV 20ML VIAL ONE (11:24)
[2018-12-08] MEDS ORDERED: MEPIVACAINE HCL 2% 20 ML VIAL (J0670) ONE (11:24)
[2018-12-08] MEDS ORDERED: MIDAZOLAM INJ 2 MG/2 ML VIAL (J2250) As Ordered ONE (12:05)
[2018-12-08] MEDS ORDERED: fentaNYL 100 MCG/2 ML INJECTION (J3010) As Ordered ONE (12:05)
[2018-12-08] MEDS ORDERED: PROPOFOL 200 MG/20 ML VIAL As Ordered ONE (12:05)
[2018-12-08] MEDS ORDERED: hydrALAZINE INJ 20 MG/ML VIAL As Ordered ONE (12:39)
[2018-12-08] MEDS ORDERED: hydrALAZINE INJ 20 MG/ML VIAL IV SCH (12:45)
[2018-12-08] MEDS ORDERED: D5W/0.2% SODIUM CHLORIDE 1,000 ML IV ONE (12:45)
[2018-12-08] MEDS ORDERED: MEPIVACAINE HCL 2% 20 ML VIAL (J0670) XX ONE (13:00)
[2018-12-08] MEDS ORDERED: PHENYLephrine HCL 500 MCG/5 ML (100MCG/ML) SYRINGE (J2370) As Ordered ONE (14:32)
--- NOTE | 2018-12-08 15:07 | ROOPDOC ---
[facility] Report Of Operation Report of Operation DATE OF PROCEDURE: 12/08/18 PREPROCEDURE DIAGNOSES: End stage renal disease on hemodialysis POSTPROCEDURE DIAGNOSES: Same PROCEDURE: Right upper extremity brachial/cephalic AV fistula creation SURGEON: Cheyenne Cordoba MD ANESTHESIA: Right upper extremity nerve block, monitored anesthesia care, local anesthesia INDICATION FOR PROCEDURE: This is a very pleasant 88-year-old patient with end- stage renal disease who is currently dialyzing with a right IJ PermCath. Risks benefits and alternatives to AV fistula creation were explained to the patient. After reviewing her vein mapping together, we felt the best option for autologous access was a right brachiocephalic AV fistula. I did discuss with her the possibility of a right AV graft if her vein was not suitable. We had a long discussion in clinic in again today. All questions were answered. Informed consent was obtained. Preoperatively, a Doppler was used to identify and gem the radial and ulnar artery in the antecubital crease. The patient has a high bifurcation of her right brachial artery near the axilla. Our plan is for antecubital arteriovenous fistula creation. PROCEDURE: The patient preoperatively underwent a nerve block with her anesthesia colleagues. We appreciate their assistance with this. The block was excellent. She was then brought to the operating room in stable condition and monitored anesthesia care and antibiotics were administered without complication. Her right upper extremity and axillar prepped and draped in sterile fashion. A timeout was performed. Clinical anesthesia was administered to skin and subcutaneous tissue just distal to the antecubital crease and a skin incision was made over the cephalic artery and radial branch of the brachial artery. This was carried down carefully through minimal subcutaneous tissue with Bovie cautery and met scissors. The cephalic vein was identified and skeletonized proximally and distally within the incision. A silk tie was placed distally at a small branch and also at the main artery near its junction with the median cubital vein. We then dissected deeper to the radial branch of the brachial artery. This was also skeletonized proximally and distally within the incision and small vessel loops were placed. The vessel loops were secured and a 5 mm arteriotomy was made. Since there is a high bifurcation of the brachial artery, technically this was a radiocephalic fistula but not a Stephen. The artery was relatively small, but suitable. The distal ends the veins were transected proximal to her suture ligation and the branch was connected to the main opening to allow larger patch for anastomosis. Serial dilators were passed through the opening of the vein proximally, including a 3 mm, 3.5 mm, 4 mm, 4.5 mm. No stenosis within the vein in the upper arm was noted with the dilators. We then used a 6-0 Prolene suture to anastomose the veins artery and an end-to-side fashion. Before the final sutures are placed the inflow and outflow artery were flushed as well as the venous backflow. We irrigated with heparinized saline and the final sutures were placed. We first r estored flow to the vein and the inflow artery, and then lastly to the outflow artery to the hand. A good thrill was noted over the vein. Doppler confirmed flow through the artery, excellent flow into the vein, and there was a palpable pulse at the radial artery and a Doppler signal at the ulnar artery and at the palmar arch. The hand was warm and well-perfused. We then irrigated with copious amounts of saline, good hemostasis was achieved. The deeper tissues were reapproximated with a running 4-0 Vicryl suture. The skin was closed with a running subcuticular Monocryl suture with care taken at the closure due to tissue-paper thin skin. We then cleaned the area and Mastisol and Steri-Strips were placed along the length of the wound is a final closure. We then placed a sling to protect the arm until the nerve block wears off. The patient was then taken to PACU in stable condition. SPECIMENS: None. DRAINS: None. ESTIMATED BLOOD LOSS: Approximately 5 mL. COMPLICATIONS: None. PLAN: Our plan is for the patient to recover and PACU and then to be discharged later today want stable. She only has to wear her sling on the right upper extr emity until the nerve block wears off, and then she can remove it. The Steri- Strips should stay intact for 5-7 days. It is okay to shower or take a bed bath, but no tub baths until the incision is completely healed. We will plan to see her back in a week to make sure the fistula has good flow and to check her incision. CHEYENNE CORDOBA MD December 08, 2018 15:07
[2018-12-08 18:30] VITALS: BP 122/58
--- NOTE | 2018-12-09 00:30 | ECGEPIP ---
Stationary ECG Study [facility] Test Date: 2018-12-08 Pat Name: ULI ESTRELLA Department: Room: - Gender: F Hose Turner: : 1930 Requested By: Te Hankins Order Number: [id number] Reading MD: Apolinar Cordero Measurements Intervals [place] Rate: 61 P: -32 [place]: 201 QRS: -62 QRSD: 170 T: 110 QT: 498 QTc: 505 Interpretive Statements ELECTRONIC ATRIAL PACEMAKER ELECTRONIC VENTRICULAR PACEMAKER ABNORMAL RHYTHM ECG PRIOR TRACING ON 04/30/2018 AT 16:10:12. NO REMARKABLE CHANGES BUT ISOLATED PVCS NOW NOTED Electronically Signed On 12-09-2018 0:30:10 EDT by Apolinar Cordero
== END 2018-12-08 18:50 | disposition home or self-care (01) ==
LOC: M SDC 11:23
PROVIDERS: ATTEND Surgery Vascular Surgery
DX: N18.6 End stage renal disease (principal); Z99.2 Dependence on renal dialysis
CPT/HCPCS: 36415; 36821; 84132; 93005; J2250; J2370; J3010; J3370

== ENCOUNTER → 2019-03-30 | Outpatient (CLI) | payer MEDICARE, MEDICAID ==
[~2019-03-30] MED LIST changes: -BUPIVACAINE HCL 0.25% 30 ML VIAL As Ordered ONE; +BUPIVACAINE HCL 0.5% 10 ML VIAL As Ordered ONE; -BUPIVACAINE HCL 0.5% 30 ML VIAL As Ordered ONE; +CLON0.5T2 PO; -CLON0.5T8 PO; -HEPARIN SOD (PORCINE) 5000 UNITS/ML VIAL As Ordered ONE; -LIDOCAINE 1% SDV INJ 30 ML VIAL As Ordered ONE; +LIDOCAINE 2% MDV 20 ML VIAL As Ordered ONE; -MIRC0.3I IM; +MIRC75IN IM; -TRAZ-160 PO; +TRAZ-252 PO; -VANCOMYCIN HCL 1,000 MG, VIAL MATE ADAPTER 1 EACH in D5W 250 ML IV ONE
--- NOTE | 2019-03-30 12:56 | ROOPDOC ---
[facility] Report Of Operation Report of Operation DATE OF PROCEDURE: 03/30/2019 PREOPERATIVE DIAGNOSIS: End-stage renal disease. Dysfunctional right brachiocephalic autogenous arteriovenous fistula. POSTOPERATIVE DIAGNOSIS: End-stage renal disease. Dysfunctional right brachiocephalic autogenous arteriovenous fistula. PROCEDURE: Right brachiocephalic arteriovenous fistulogram. Retrograde right brachial artery angiogram. SURGEON: Dr. Vianney Barboza MD SENIOR ANDROID SOFTWARE ENGINEER: Tracy Garcia INDICATION: Patient is a 88-year-old female with end-stage renal disease who dialyzes through a right brachiocephalic arteriovenous fistula. Patient has had difficulty with extravasation and hematoma formation during cannulation. Patient will undergo a right brachiocephalic arteriovenous fistulogram. Procedure was explained and described to the patient in detail including drawing of pictures demonstrating the procedure and the anatomy. Risks, benefits and alternative treatment options were discussed with the patient. Benefits included but were not limited to improved functioning of the arterial venous fistula and maintained patency. Alternative treatment options included but were not limited to no intervention. Risks included but were not limited to infection, bleeding, loss of arteriovenous access, steal syndrome, possible need for open surgical intervention, anesthetic complications, allergic reaction or complication from the prepping and draping materials, allergic reaction or complication from the contrast, scarring of the skin, hematoma formation, scarring, bruising, possible need for transfusion of blood products, ce rebrovascular accident, myocardial infarction, pulmonary embolus, deep venous thrombosis, loss of limb, loss of life and poor outcome. Risks of not performing the procedure included but were not limited to loss of autogenous arteriovenous access with need for placement of a tunneled central venous catheter for access and creation of a new access for hemodialysis Patient's questions were answered. Patient voices understanding of these risks, benefits and alternative treatment options. Patient voices acceptance of these risks associated with the procedure and consents to proceed with a fistulogram with possible angioplasty, atherectomy and/or stenting. No promises or guarantees were made to the patient regarding the procedure results or outcome. The patie nt signed the consent in the preoperative holding area. ANESTHESIA: Local with 1 mL of 2% lidocaine mixed with 0.5% Marcaine SEDATION TIME: No sedation was given. ESTIMATED BLOOD LOSS: 5 mL. IV FLUIDS: 50 mL. HEPARIN: None PROTAMINE: None FLUORO TIME: 0.1 minutes CONTRAST: 3 mL. of Isovue 300 COMPLICATIONS: None DRAINS: None. SPECIMENS: None. IMPLANTS: None PROCEDURE: Patient was taken to the angiography suite, placed supine on the angiography room table and then prepped and draped in a standard surgical fashion. A procedural time-out was conducted by myself and the team members involved in the procedure confirming the correct patient, procedure and laterality. The right brachiocephalic autogenous arteriovenous fistulas and then cannulated with a micro-puncture needle after anesthetizing the overlying skin and subcutaneous tissue with 2% lidocaine mixed with 0.5% Marcaine. A micropuncture wire was advanced through the micropuncture needle which was up- sized to a micropuncture sheath. A fistulogram and retrograde right brachial artery angiogram were performed showing no intervention was required. The cat heter was removed and manual compression applied at the puncture site for hemostasis. Dressings were then applied. Patient tolerated the procedure well. There were no complications. All instrument, sponge and needle counts were correct at the end of the case. Dr. Barboza was present for and directed the entire case. Patient was transferred to the recovery area and subsequently discharged in stable condition. The results of the procedure were described and explained to the patient in the post operative holding area with all of her questions answered. RADIOLOGIC SUPERVISION AND INTERPRETATION: The fistulogram showed the cephalic vein to be widely patent to the central venous system with no central venous stenosis or occlusion noted. There were 2 collateral branch is originating off of the cephalic vein and coursing into the deeper venous system in the upper arm there was a large collateral at the antecubital fossa originating off the cephalic vein and coursing into the forearm and then into the basilic vein. The retrograde brachial artery angiogram showed the remainder of the cephalic vein from the cannulation site to the brachial artery to be widely patent. There was good flow in the brachial artery proximal and distal to the arteriovenous anastomosis. There was no stenosis at the arteriovenous anastomosis. CONCLUSION: The fistula was widely patent and required no intervention and was of adequate size for access for hemodialysis. Patient will continue to attempt usage of the fistula for dialysis access. Attempts at recanalization of the fistula should be in approximately 2 weeks to allow for healing of the hematoma and extravasation the patient has had this time. If there is continued difficulty with cannulation and hematoma formation the patient may require ligation of the collateral branches for straight-line flow through the fistula outflow tract making palpation of the fistula easier. PLAN: The patient's tunneled central venous catheter with subcutaneous cuff will not be removed at this time and will be used for dialysis for the next 2 weeks. The patient will begin using the right brachiocephalic autogenous arteriovenous fistula in 2 weeks. Once the fistula is being new successfully the patient will then undergo removal of her tunneled central venous catheter. Ahsan Barboza MD Mar 30, 2019 12:56
[2019-03-30 12:58] VITALS: BP 129/60
== END ==
LOC: M IRPRO 11:17
PROVIDERS: ATTEND Surgery Vascular Surgery
DX: N18.6 End stage renal disease (principal); T82.898A Other specified complication of vascular prosthetic devices, implants and grafts, initial encounter; X58.XXXA Exposure to other specified factors, initial encounter; Y93.9 Activity, unspecified; Y92.9 Unspecified place or not applicable; Y99.9 Unspecified external cause status
CPT/HCPCS: 36901; C1894; Q9967

== ENCOUNTER → 2019-05-04 | Outpatient (CLI) | payer MEDICARE, MEDICAID ==
[~2019-05-04] MED LIST changes: -BUPIVACAINE HCL 0.5% 10 ML VIAL As Ordered ONE; -CLON0.5T2 PO; +CLON0.5T8 PO; -ISOVUE-300 61% 50ML VIAL (Q9967) As Ordered ONE; -LIDOCAINE 2% MDV 20 ML VIAL As Ordered ONE; +LIDOCAINE W/EPINEPHRINE 1% 20ML VIAL As Ordered ONE
[2019-05-04 12:05] VITALS: BP 187/78
--- NOTE | 2019-05-04 13:10 | ROOPDOC ---
[facility] Report Of Operation Report of Operation DATE OF PROCEDURE: 05/04/19 PREPROCEDURE DIAGNOSES: End-stage renal disease on hemodialysis no longer requiring PermCath for dialysis POSTPROCEDURE DIAGNOSES: Same PROCEDURE: Removal right IJ PermCath SURGEON: Cornell Cordoba MD ANESTHESIA: 10 mL lidocaine local anesthesia only INDICATION FOR PROCEDURE: This is a very pleasant 88-year-old patient successfully dialyzing with a right upper extremity brachiocephalic AV fistula no longer requires her PermCath for dialysis. Risks benefits alternatives to removal of her PermCath were explained and she is agreeable to proceed. Informed consent was obtained. REPORT OF OPERATION: The patient's right neck and chest including her PermCath were prepped and draped in a sterile fashion. A timeout was performed. Local anesthesia was administered to skin and subcutaneous tissue on the right chest around the exit site of the catheter. Blunt and sharp dissection were used to loosen the cuff from the subcutaneous tissue. Pressure was held over the jugular access site and the catheter was removed. The catheter was inspected and found to be completely intact, no portion was left behind. Pressure was held for 10 minutes for good hemostasis without a bit elevated today diminished venous pressure. The patient was monitored for 30 minutes after discontinuation of the catheter and then was discharged in stable condition. ESTIMATED BLOOD LOSS: Approximately 2 mL. COMPLICATIONS: None. PLAN. Our plan is to see the patient back in one month to check on her progress and see how she is doing with her fistula and make sure she is not having any issues. She has a clinic appointment for the second week of June. CORNELL CORDOBA MD May 04, 2019 13:10
== END ==
LOC: M IRPRO 09:45
PROVIDERS: ATTEND Surgery Vascular Surgery
DX: Z45.2 Encounter for adjustment and management of vascular access device (principal); N18.6 End stage renal disease